=== PATIENT | female | born 2000 | race Two or more races ===

== ENCOUNTER → 2025-06-27 | Outpatient (CLI) | payer MEDICAID, SELFPAY ==
--- NOTE | 2025-06-27 | XR_ITS ---
Examination: OB Transvaginal ultrasound of the pelvis, complete Technique: Transvaginal sonographic images pelvis performed using hernandez scale imaging Exam date and time: June 27, 2025, 1649 hours INDICATIONS: Unknown size and dates FINDINGS: Uterus 11.5 cm, CRL 3.9 cm corresponds to 10 weeks 5 days gestational age Cardiac motion 166 bpm Right ovary obscured by bowel gas Left ovary 3.7 cm arterial flow, 23 x 18 x 21 mm mass seen in the left ovary IMPRESSION: Viable intrauterine gestation 10 weeks 5 days Recommend 2-month follow-up study to include dedicated imaging of the left ovary to exclude 23 x 18 x 21 mm solid mass left ovary
== END | disposition home or self-care (01) ==
LOC: CDIM 16:40
DX: Z34.00 Encounter for supervision of normal first pregnancy, unspecified trimester (principal)
CPT/HCPCS: 76817